=== PATIENT | male | born 1950 | race Caucasian/White ===

== ENCOUNTER 2023-11-22 14:53 | Emergency (ER) | payer MEDICARE, SELFPAY ==
[2023-11-22 14:54] VITALS: BP 182/98
[2023-11-22 15:16] VITALS: BMI 22.3
--- NOTE | 2023-11-22 15:21 | ED.GENMED ---
History of Present Illness
General
Chief Complaint: Ear Problem
Source: patient
Exam Limitations: none
Time Seen by Provider: 11/22/23 15:03
Travel History
Have you had any contact with someone who has COVID-19?: No
Do you have any symptoms of coronavirus? Fever > 100 degrees, chills, cough, shortness of breath, sore throat, loss of taste or smell, muscle aches, or headache?: No
History of Present Illness
History of Present Illness:
See MDM
Past History
Past History
ED Past Medical History: CVA, GERD and HTN
ED Past Surgical History: Cholecystectomy
Social History
Tobacco: Non-smoker
Alcohol: Occasional
Phy Exam
Physical Exam
Physical Exam:
See MDM
Course
Orders/Labs/Results
Orders:
Orders
11/22/23 15:13
CT Temporal-iac W/o Iv Contras Urgent
Comment:
Reason For Exam: Right side hearing loss
11/22/23 15:20
Complete Blood Count/With Diff Urgent
Comprehensive Metabolic Panel Urgent
Abnormal Lab Results
11/22/23
15:20
MCH 31.9 H pg
(27.0-31.0)
Sodium 133 L mmol/L
(135-145)
Creatinine 0.6 L mg/dL
(0.7-1.3)
Glucose 120 H mg/dl
(70-99)
11/22/23 15:20
11/22/23 15:20
Vital Signs
Initial and Last Documented VS:
Initial Vital Signs
Temp Pulse Resp BP Pulse Ox
98.2 F 96 18 182/98 99
11/22/23 14:54 11/22/23 14:54 11/22/23 14:54 11/22/23 14:54 11/22/23 14:54
Last Documented Vital Signs
Temp Pulse Resp BP Pulse Ox
98.2 F 79 20 147/77 95
11/22/23 14:54 11/22/23 17:35 11/22/23 17:35 11/22/23 17:35 11/22/23 17:35
MDM/Problems Addressed
Differential Diagnosis Includes:
HPI and MDM Narrative:
73-year-old male presenting with right-sided hearing loss. Patient was recently placed on cefprozil for 'fluid in his left ear'. After day 3 of the antibiotic, he lost hearing in his right ear. He finished the 10-day course of the antibiotic.
Patient complains of ringing in his right ear.
On exam, patient has evidence of fluid behind both eardrums. Air conduction is greater than Bone conduction in R ear.
I discussed with patient that the antibiotic could be ototoxic. Will obtain basic blood work and CT of the temporal region and ultimately have him follow-up with ENT
Physical exam
General: Well appearing and non-toxic
HEENT: protecting airway. Bilateral TMs clear. Both TMs have clear fluid behind. No evidence of otitis media. Air conduction greater than bone conduction in right ear
Neck: appears supple
CV: No evidence of cyanosis
Resp: No accessory muscle use
Abd: Non-distended
Extremities: No deformities
Neuro: alert
Psych: Normal affect
Skin: Intact
Problems Addressed including Acute and Chronic Conditions affecting care:
1. Unilateral hearing loss
Acuity: acute
Prognosis: stable
Details: Will obtain CT looking for any evidence of mass versus infection. Discussed likely ototoxic side effect from antibiotics. He is off antibiotics. Will have him follow-up with ENT
Updates
Labs without clinical significance. CT negative for acute pathology. Discussed follow-up with ENT
Differential Diagnosis (but not limited to): Ototoxic adverse side effect of antibiotic, sensorineural hearing loss
Testing considered:
Drug therapy (if applicable): OTC meds, please see d/c instruction regarding Rx drugs
Amount and/or Complexity of Data Reviewed
Clinical info obtained from: Patient
External data reviewed: N/A
Labs I independently reviewed (but not limited to): White blood cell count normal
Radiology: the CT scan was personally and independently reviewed. In addition, official CT report reviewed.
Pulse Ox: not hypoxic
EKG independently reviewed: N/A
Community Health Nursing Director: N/A
Critical Care: N/A
Risk of Complication:
Social Determinants of health: Good social support
Discussed with other providers: N/A
Escalation of Care includes Admit/Obs: After being observed in the Emergency Department, pt stable for discharge.
Occasional wrong word or 'sound a like' substitutions may have occurred due to the inherent limitations of voice recognition software. Read the chart carefully and recognize, using context, where substitutions have occurred.
*Critical Care Note
Total Time (30-74mins, 75-104mins- exclusive of procedures): Not Applicable
ED Attending Note
-
Portions of this chart may have been created with voice recognition software.� Occasional wrong word or��sound alike� substitutions may have occurred due to the inherent limitations of voice recognition software.
Discharge Plan
Departure
Patient Disposition: Home (Routine Discharge)
Date of Disposition: 11/22/23
Time of Disposition: 18:30
Patient with high blood pressure during this ER visit?: Yes
Discharge Problem:
Sensorineural hearing loss (SNHL) of right ear
Prescriptions:
No Action
metformin 500 MG tablet
500 mg PO BID
cyanocobalamin (vitamin B-12) 1,000 MCG tablet extended release
1,000 mcg PO DAILY
atorvastatin 20 MG tablet
20 mg PO QPM
felodipine 5 MG tablet extended release 24 hr
5 mg PO DAILY
trazodone 100 MG tablet
100 mg PO HS
Patient Comments:
take one tab every day after meals
bupropion HCl 75 MG tablet
3 tab PO HS
vitamin B complex 1 EACH tablet
1 ea PO DAILY
gabapentin 100 MG capsule
300 mg PO BID
fluticasone propionate 1 SPRAY spray,suspension
1 spray intranasal DAILY PRN (Reason: CONGESTION)
Patient Comments:
1 spray each nostril daily
atenolol 50 MG tablet
50 mg PO DAILY
omeprazole 20 MG tablet,delayed release (DR/EC)
20 mg PO DAILY
omega 6-kve-vzp-fish oil [Fish Oil] 1 EACH capsule
1 ea PO DAILY
aspirin 325 MG tablet
325 mg PO DAILY
aspirin 81 MG tablet,delayed release (DR/EC)
81 mg PO DAILY
loratadine-pseudoephedrine [Loratadine-D] 1 EACH tablet extended release 24 hr
1 ea PO DAILY
diclofenac sodium 25 MG tablet,delayed release (DR/EC)
50 mg PO DAILY
acetaminophen 325 MG tablet
650 mg PO Q4HPRN PRN (Reason: mild pain) Qty: 1 0RF
ibuprofen 200 MG tablet
400 - 600 mg PO Q6HPRN PRN (Reason: moderate pain) Qty: 1 0RF
oxycodone 5 MG tablet
5 mg PO Q4HPRN PRN (Reason: breakthrough/severe pain) Qty: 10 0RF
Referrals:
Bill Pisano MD [Family Provider] -
Marylu Chisholm MD [Active] -
Activity Restrictions/Additional Instructions:
As we discussed, your hearing loss could be related to the antibiotic you are taking. Please follow-up with the ENT physician. Please make an appointment to see your primary care doctor as well.
Interventions
Interventions:
*Risk Screen - Suicide Last Done: 11/22/23 14:54
*General Assessment Last Done: 11/22/23 14:54
*Neglect/Abuse Screening Last Done: 11/22/23 14:54
ED- Fall Risk Assessment Last Done: 11/22/23 18:37
*ED COVID-19 Vaccine History Last Done: 11/22/23 14:54
*Nursing Disposition Last Done: 11/22/23 18:37
Discharge Date and Time
Discharge Date/Time: 11/22/23 18:38
[2023-11-22 16:01] LABS: % Basophils 0.6 % (0-2); % Eosinophils 2.5 % (0-6); % Immature Granulocytes 0.5 % (0-0.5); % Lymphocytes 27.8 % (20.5-51.1); % Monocytes 7.2 % (1.7-9.3); % Neutrophils 61.4 % (42.2-75.2); Absolute Basophils 0.1 10^3/uL (0-0.2); Absolute Eosinophils 0.2 10^3/uL (0-0.7); Absolute Lymphocytes 2.4 10^3/uL (1.2-3.4); Absolute Monocytes 0.6 10^3/uL (0.1-0.6); Absolute Neutrophils 5.4 10^3/uL (1.4-6.5); Hematocrit 42.9 % (39.0-52.0); Hemoglobin 15.6 g/dL (13.0-18.0); Mean Corp Hgb Conc. 36.4 g/dL (33.0-37.0); Mean Corpuscular Hgb 31.9 pg (27.0-31.0); Mean Corpuscular Volume 87.7 fL (80.0-94.0); Mean Platelet Volume 10.2 fL (7.4-10.4); Nucleated Red Blood Cells % 0 % (-); Platelet Count 251 10^3/uL (130-400); Red Blood Cell Count 4.89 10^6/uL (4.70-6.10); Red Cell Dist. Width 12.7 % (11.5-14.5); White Blood Cell Count 8.7 10^3/uL (4.8-10.8)
[2023-11-22 16:03] LABS: ALT (SGPT) 22 U/L (0-50); AST (SGOT) 39 U/L (17-59); Albumin 4.6 g/dl (3.5-5.0); Alkaline Phosphatase 76 U/L (38-126); Blood Urea Nitrogen 9 mg/dl (9-20); Calcium 9.6 mg/dl (8.4-10.2); Carbon Dioxide 24 mmol/L (22-30); Chloride 101 mmol/L (98-107); Estimated Creatinine Clearance 99 ml/min; Glucose 120 mg/dl (70-99); Potassium 3.8 mmol/L (3.5-5.1); Sodium 133 mmol/L (135-145); Total Protein 7.3 g/dl (6.3-8.2); eGFR > 60.00
[2023-11-22 17:35] VITALS: BP 147/77
== END 2023-11-22 18:38 | disposition home or self-care (01) ==
LOC: EMR 14:53
PROVIDERS: EMERGENCY PHYSICIAN Student in an Organized Health Care Education/Training Program; FAMILY PHYSICIAN Internal Medicine
DX: H90.41 Sensorineural hearing loss, unilateral, right ear, with unrestricted hearing on the contralateral side (principal); I10 Essential (primary) hypertension
CPT/HCPCS: 99284; 70480; 80053; 85025

== ENCOUNTER 2024-10-26 15:27 | Inpatient (IN) | payer MEDICARE, SELFPAY ==
[2024-10-26 11:34] VITALS: BP 183/89
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
[2024-10-26 11:39] VITALS: BMI 21.4
[2024-10-26 11:42] VITALS: BP 183/89
[2024-10-26 11:52] LABS: Glucose - Point of Care 96 mg/dl (70-99)
[2024-10-26 11:54] LABS: % Basophils 0.5 % (0-2); % Eosinophils 2.4 % (0-6); % Immature Granulocytes 0.2 % (0-0.5); % Lymphocytes 30.5 % (20.5-51.1); % Monocytes 8.2 % (1.7-9.3); % Neutrophils 58.2 % (42.2-75.2); Absolute Eosinophils 0.1 10^3/uL (0-0.7); Absolute Lymphocytes 1.8 10^3/uL (1.2-3.4); Absolute Monocytes 0.5 10^3/uL (0.1-0.6); Absolute Neutrophils 3.3 10^3/uL (1.4-6.5); Hematocrit 44.7 % (39.0-52.0); Hemoglobin 15.9 g/dL (13.0-18.0); Mean Corp Hgb Conc. 35.6 g/dL (33.0-37.0); Mean Corpuscular Hgb 32.2 pg (27.0-31.0); Mean Corpuscular Volume 90.5 fL (80.0-94.0); Mean Platelet Volume 10.2 fL (7.4-10.4); Nucleated Red Blood Cells % 0 % (-); Platelet Count 219 10^3/uL (130-400); Red Blood Cell Count 4.94 10^6/uL (4.70-6.10); Red Cell Dist. Width 12.4 % (11.5-14.5); White Blood Cell Count 5.7 10^3/uL (4.8-10.8)
[2024-10-26 11:55] LABS: Urine Albumin Negative (Neg - Trace); Urine Bilirubin Negative (Negative); Urine Character Clear (Clear); Urine Color Yellow; Urine Glucose Negative (Negative); Urine Ketone Negative (Negative); Urine Leukocyte 2+ (Negative); Urine Nitrite Negative (Negative); Urine Occult Blood 1+ (Negative); Urine Urobilinogen Negative (Neg - 1+)
[2024-10-26 12:07] LABS: ALT (SGPT) 19 U/L (0-50); AST (SGOT) 32 U/L (17-59); Albumin 4.4 g/dl (3.5-5.0); Alkaline Phosphatase 61 U/L (38-126); Blood Urea Nitrogen 7 mg/dl (9-20); Calcium 9.3 mg/dl (8.4-10.2); Carbon Dioxide 31 mmol/L (22-30); Chloride 100 mmol/L (98-107); Estimated Creatinine Clearance 89 ml/min; Glucose 107 mg/dl (70-99); Potassium 3.7 mmol/L (3.5-5.1); Sodium 137 mmol/L (135-145); Total Bilirubin 1.3 mg/dl (0.2-1.3); Total Protein 6.9 g/dl (6.3-8.2); eGFR > 60.00
[2024-10-26 12:08] LABS: Alcohol None Detected
[2024-10-26 12:21] LABS: Ammonia < 9 umol/L (9-30)
[2024-10-26 12:33] LABS: Urine Bacteria Few (Negative); Urine Red Blood Cell 0-2 /HPF (0-2); Urine Squamous Cell None seen /LPF (Few)
--- NOTE | 2024-10-26 14:09 | PHANOTE ---
Addendum entered by Hemant Deleon 10/26/24 15:35:
Checked with family, they are very unsure of current medications. Instructed to bring in bottles that are at home, will check back later if possible.
Original Note:
SOLO tech(10/26/24)-Family will go home and compile medication list from patient's medications, estimated will come around 15:00.
[2024-10-26 14:35] LABS: Folate > 20.0 ng/ml (2.76-20); Vitamin B12 641 pg/ml (239-931)
--- NOTE | 2024-10-26 14:53 | HPS.HSE ---
Family Physician
-
Family Physician: * NONE
Chief Complaint
-
confused and wonderer patient
History of Present Illness
I could not get any information from the patient as he is confused
Information gathered by chart review and speaking with the ER staff.
Medical History
Past Medical History
Past Medical History: Reports CVA, HTN, Hypercholesterolemia and NIDDM
Past Surgical History: Reports Cholecystectomy
Social History
Alcohol: Daily (quit 1 week ago )
Living: Other (hotel )
Family History
Family History: Not pertinent
Allergies / Home Medications
Allergies reflects when Allergies were last updated in [facility].
Home Medications with original date entered in [facility]
Allergy/Medication List:
Allergies
Allergy/AdvReac Type Severity Reaction Status Date / Time
No Known Allergies Allergy Verified 06/30/20 07:53
Home Medications
atenolol 50 mg tablet 50 mg PO DAILY 01/08/13
atorvastatin 20 mg tablet 20 mg PO QPM 01/08/13
bupropion HCl 75 mg tablet 3 tab PO HS 01/08/13
cyanocobalamin (vitamin B-12) 1,000 mcg tablet,extended release 1,000 mcg PO DAILY 01/08/13
felodipine 5 mg tablet,extended release 24 hr 5 mg PO DAILY 01/08/13
fluticasone propionate 50 mcg/actuation nasal spray,suspension 1 spray intranasal DAILY PRN CONGESTION 01/08/13
gabapentin 100 mg capsule 300 mg PO BID 01/08/13
metformin 500 mg tablet 500 mg PO BID 01/08/13
omeprazole 20 mg tablet,delayed release 20 mg PO DAILY 01/08/13
trazodone 100 mg tablet 100 mg PO HS 01/08/13
vitamin B complex 1 ea PO DAILY 01/08/13
aspirin 325 mg tablet 325 mg PO DAILY 06/29/20
aspirin 81 mg tablet,delayed release 81 mg PO DAILY 06/29/20
diclofenac sodium 25 mg tablet,delayed release 50 mg PO DAILY 06/29/20
loratadine-pseudoephedrine ER 10 mg-240 mg tablet,extended [id number] (Loratadine-D) 1 ea PO DAILY 06/29/20
omega 0-qba-mky-fish oil 300 mg-1,000 mg capsule (Fish Oil) 1 ea PO DAILY 06/29/20
acetaminophen 325 mg tablet 650 mg (2 x 325 mg) PO Q4HPRN PRN mild pain #1 tab 06/30/20
ibuprofen 200 mg tablet 400 - 600 mg (2 - 3 x 200 mg) PO Q6HPRN PRN moderate pain #1 tab 06/30/20
oxycodone 5 mg tablet 5 mg PO Q4HPRN PRN breakthrough/severe pain #10 tabs 06/30/20
Review of Systems
-
Unable to obtain full review of systems at this time due to: Acuity (confused )
Physical Exam
Vital Signs
Vital Signs
Temp Pulse Resp BP Pulse Ox
97.5 F 69 14 183/89 94
10/26/24 11:42 10/26/24 14:30 10/26/24 14:30 10/26/24 11:42 10/26/24 14:30
Physical Exam
General: No Apparent Distress, Comfortable and Conversant
HEENT: NormoCephalic, Anicteric and Moist mucous membranes
Respiratory: Clear
Cardiac: S1/S2 and Regular Rhythm
GI: Soft, Non Tender, Non Distended and Normal Bowel Sounds
Neuro: Awake and Alert
Psych: Calm and Confused
Laboratory Results
-
10/26/24 11:41
10/26/24 11:41
Laboratory Results
Total Bilirubin 1.3 mg/dl (0.2-1.3) 10/26/24 11:41
AST 32 U/L (17-59) 10/26/24 11:41
ALT 19 U/L (0-50) 10/26/24 11:41
Alkaline Phosphatase 61 U/L (38-126) 10/26/24 11:41
Data Reviewed
-
CT Scan: Report Reviewed by me
Lab Data: Labs Reviewed by me
Impression/Plan
-
Reviewed VS: afebrile, not tachycardic, Hypertensive 180s/90s POx 100 on RA
Laboratory Tests
10/26/24
11:41
WBC 5.7
Hgb 15.9
Plt Count 219
Carbon Dioxide 31 H
BUN 7 L
Creatinine 0.6 L
EKG
NORMAL SINUS RHYTHM
NORMAL ECG
WHEN COMPARED WITH ECG OF 30-JUN-2020 14:02,
IA INTERVAL HAS DECREASED
HCT
No acute intracranial abnormality.
Minor chronic ischemic change.
ASSESSMENT & PLAN
Pending Rx reconciliation
AMS and Confusional state : acute vs subacute vs chronic
DDX: likely acute ETOH WDS Plus or minus elements of cognitive dysorder like ETOH related MCI vs DEmentia
- associated hypertensive BP but no other evidecnne of autonomic hyperarousal features
- Nevertheless will start PHB protocol
- Observe VSS
- check B12, Folate and TSH
- Psych consult
Uncontrol HTN
Essentila HTN
- Pending Rx reconciliation
- add IV Hydralazine PRN for SBP > 165 , DBP > 110
DMT2
- Pending Rx reconciliation but noted Metformin on the list
- add ISS low
Mood disorder ? ETOH related
- Pending Rx reconciliation but noted Bupropion and Trazodone on the list
Hold of Ibuprofen if confirmed
DVT Px: SCD
Full code
IP TLM
[2024-10-26 15:17] VITALS: BP 123/70
--- NOTE | 2024-10-26 16:49 | PTCARENOTE ---
Received patient from ED via stretcher. Pt AAOX3. NSR on panel monitor. MSAS 0 at this time. Bed alarm on. Call roberts within reach. Plan of care ongoing.
[2024-10-26 17:12] VITALS: BP 152/77; BMI 22.5
[2024-10-26] MEDS: PHENOBARBITAL 104 MG IV (17:12)
--- NOTE | 2024-10-26 17:13 | PTCARENOTE ---
Pt stated that hearing aids were left at home, however a family member will be bringing them tomorrow for him.
[2024-10-26] MEDS: THIAMINE INJECTION 200 MG IV (17:14)
[2024-10-26 17:26] LABS: Glucose - Point of Care 63 mg/dl (70-99)
[2024-10-26] MEDS: NOVOLOG FLEXPEN-LOW RESISTANCE SC (17:37)
[2024-10-26 17:58] LABS: Glucose - Point of Care 144 mg/dl (70-99)
[2024-10-26 18:19] LABS: Urine Albumin 1+ (Neg - Trace); Urine Bilirubin Negative (Negative); Urine Character Slightly Cloudy (Clear); Urine Color Yellow; Urine Glucose Negative (Negative); Urine Ketone Negative (Negative); Urine Leukocyte Negative (Negative); Urine Nitrite Negative (Negative); Urine Occult Blood 1+ (Negative); Urine Urobilinogen Negative (Neg - 1+); Urine pH 6.5 (5.0-9.0)
[2024-10-26 18:26] LABS: Urine Squamous Cell 0-2 /LPF (Few); Urine White Cell 0-2 /HPF (0-5)
[2024-10-26 18:31] LABS: Amphetamines Negative (Negative); Barbiturates Negative (Negative); Benzodiazepines Negative (Negative); Buprenorphine Negative (Negative); Cocaine Negative (Negative); Marijuana Positive (Negative); Methadone Negative (Negative); Methamphetamines Negative (Negative); Opiates Negative (Negative); Phencyclidine Negative (Negative); Tricyclic Antidepressants Negative (Negative)
[2024-10-26 18:57] LABS: GGTP 32 U/L (15-73); Magnesium 1.6 mg/dl (1.6-2.3); Phosphorus 3.2 mg/dl (2.5-4.5)
[2024-10-26 19:55] VITALS: BP 123/67
[2024-10-26 21:51] LABS: Glucose - Point of Care 129 mg/dl (70-99)
[2024-10-26] MEDS: PHENOBARBITAL 97.5 MG IV (22:06)
[2024-10-26 23:00] VITALS: BP 109/60
[2024-10-27] MEDS: THIAMINE INJECTION 200 MG IV ×4 (00:29→23:43)
[2024-10-27 03:55] VITALS: BP 119/61
[2024-10-27 08:09] VITALS: BP 118/70
[2024-10-27] MEDS: PHENOBARBITAL 97.5 MG IV ×3 (08:09→21:35)
[2024-10-27] MEDS: FOLVITE 1 MG PO (08:10)
[2024-10-27 09:34] LABS: Glycohemoglobin (HgbA1c) 5.8 % (4.0-5.6)
[2024-10-27 10:08] LABS: Glucose - Point of Care 102 mg/dl (70-99)
[2024-10-27] MEDS: NOVOLOG FLEXPEN-LOW RESISTANCE SC ×3 (10:21→17:40)
[2024-10-27 12:01] VITALS: BP 152/78
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
[2024-10-27 12:40] LABS: Glucose - Point of Care 179 mg/dl (70-99)
--- NOTE | 2024-10-27 15:23 | W.PN.HOSP.TC ---
Today's Communication/Plan
-
Continue alcohol withdrawal protocol
Phenobarbital
Thiamine
Assessment / Plan
Assessment / Plan
Impression:
Acute mental status change.
Alcohol use disorder.
Other conditions:
Essential hypertension.
Diabetes type 2.
Hearing deficit.
Plan:
Acute mental status change suspected acute delirium secondary to alcohol withdrawal, Wernicke's encephalopathy.
Neurologic exam with no focal findings.
CT head with no acute abnormalities.
No clinical evidence of hepatic encephalopathy
Seems to be improving on phenobarbital
Continue alcohol withdrawal protocol.
Continue IV thiamine
Essential hypertension
Resume atenolol
Dyslipidemia on Lipitor.
Type 2 diabetes
Hemoglobin A1c 5.8.
Continue basal bolus protocol and carbohydrate controlled diet
Anticipated Discharge: 24 - 48 hours
Subjective/Interval History
-
Date of Service: October 27, 2024
Objective Data
-
Vital Signs:
Vital Signs
Temp Pulse Resp BP Pulse Ox
98.9 F 80 18 152/78 99
10/27/24 12:01 10/27/24 12:01 10/27/24 12:01 10/27/24 12:01 10/27/24 12:01
I&O
10/26/24 10/27/24 10/28/24
06:59 06:59 06:59
Intake Total 104 / 104
Output Total 200 / 200
Balance 104 / 104 -200 / -200
Physical Exam
-
General: Well Developed and No Apparent Distress
HEENT: Normocephalic, Atraumatic and Moist Mucous Membranes
Respiratory: Clear to Auscultation
Cardiac: Regular Rhythm and S1/S2; Negative Murmur, Rub or Gallop
GI: Soft, Nontender, Nondistended and Normal Bowel Sounds; Negative Organomegaly
Rectal: Deferred by Provider
Musculoskeletal: No Clubbing, No Cyanosis and No Edema
Skin: Negative Rash
Neuro: Nonfocal/Grossly Intact
[2024-10-27] MEDS: NEURONTIN 300 MG PO ×2 (15:50→21:35)
[2024-10-27] MEDS: PROTONIX 40 MG PO (15:50)
[2024-10-27] MEDS: LIPITOR 40 MG PO (15:53)
[2024-10-27 16:03] VITALS: BP 143/72
[2024-10-27] MEDS: TENORMIN 50 MG PO (16:10)
[2024-10-27 17:09] LABS: Glucose - Point of Care 85 mg/dl (70-99)
[2024-10-27] MEDS: FLOMAX 0.8 MG PO (17:41)
[2024-10-27 19:44] VITALS: BP 119/62
[2024-10-27 22:04] LABS: Glucose - Point of Care 131 mg/dl (70-99)
[2024-10-27 23:59] VITALS: BP 101/60
[2024-10-28 03:46] VITALS: BP 115/65
[2024-10-28 07:45] VITALS: BP 131/71
[2024-10-28] MEDS: FOLVITE 1 MG PO (08:43)
[2024-10-28] MEDS: NEURONTIN 300 MG PO ×3 (08:43→21:02)
[2024-10-28] MEDS: PROTONIX 40 MG PO (08:43)
[2024-10-28] MEDS: LIPITOR 40 MG PO (08:43)
[2024-10-28] MEDS: PLENDIL EXTENDED RELEASE 5 MG PO (08:43)
[2024-10-28] MEDS: TENORMIN 50 MG PO (08:43)
[2024-10-28] MEDS: FLUSH (NSS) 2 FLUSH IV ×2 (08:44→17:01)
[2024-10-28] MEDS: PHENOBARBITAL 97.5 MG IV ×2 (08:46→17:00)
[2024-10-28] MEDS: THIAMINE INJECTION 200 MG IV ×3 (08:47→23:00)
[2024-10-28 08:49] LABS: Glucose - Point of Care 94 mg/dl (70-99)
[2024-10-28] MEDS: NOVOLOG FLEXPEN-LOW RESISTANCE SC ×2 (08:49→17:51)
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
[2024-10-28 11:40] VITALS: BP 118/62
[2024-10-28 12:03] LABS: Glucose - Point of Care 158 mg/dl (70-99)
[2024-10-28] MEDS: NOVOLOG FLEXPEN-LOW RESISTANCE 1 UNITS SC (13:31)
--- NOTE | 2024-10-28 14:42 | CM ---
Addendum entered by Jerad Woodard 10/28/24 16:01:
Spoke w/ Nguyễn, shared he and his [id number] toured [facility] today and is interested in moving forward w/ admission. Nguyễn stated he was informed by the director that there needs to be a firm dementia dx before admission as it is state
mandated. Nguyễn also inquired if pt's insurance would cover the placement at [facility]. CM informed facilities, no matter the level of care is usually private pay, Nguyễn stated the director did review w/ him the financial cost but was hoping
insurance can assist. Nguyễn shared his [id number] is [facility] w/ [facility] as pt is a disabled [facility].
CM spoke w/ hospitalist regarding dementia dx. Per Dr. Albrecht pt's mentation is resolving and has only been getting treated for alcohol withdrawal. Pt is not indicating any signs of dementia at this time.
CM updated Nguyễn sharing what Dr. Albrecht said and has requested a phone call, TT hospitalist making him aware.
Original Note:
Spoke w/ pt's son, Nguyễn, regarding d/c plan. CM informed Nguyễn that the director from [facility] updated CM after he met w/ pt bedside and spoke w/ him and deems pt appropriate. Nguyễn shared he is considering [facility] and will clarify w/ the
director if pt actually needs a dementia dx to admit, though this was not told to CM. Nguyễn shared he is still exploring other facilities and trying to gather all needed information in terms of cost, levels of care, etc. Nguyễn understands that
pt is stable for d/c. Nguyễn shared he did speak w/ Hunter/MA[employer] technician inventory specialist regarding D&A support for pt and will follow up w/ him as well. Not sure if pt will admit to IP D&A, OP may be explored.
CM will cont to follow for d/c planning
Plan: Memory Care Placement
[2024-10-28 14:46] LABS: ALT (SGPT) 15 U/L (0-50); AST (SGOT) 20 U/L (17-59); Albumin 3.6 g/dl (3.5-5.0); Alkaline Phosphatase 54 U/L (38-126); Blood Urea Nitrogen 13 mg/dl (9-20); Carbon Dioxide 28 mmol/L (22-30); Chloride 101 mmol/L (98-107); Estimated Creatinine Clearance 94 ml/min; Glucose 101 mg/dl (70-99); Potassium 3.8 mmol/L (3.5-5.1); Sodium 134 mmol/L (135-145); Total Protein 5.8 g/dl (6.3-8.2); eGFR > 60.00
[2024-10-28 15:40] VITALS: BP 125/61
--- NOTE | 2024-10-28 15:57 | W.PN.HOSP.TC ---
Today's Communication/Plan
-
Mental status overall improved while on phenobarbital taper.
Will continue
Physical therapy assessment
Ongoing disposition efforts Home versus rehab.
Assessment / Plan
Assessment / Plan
Impression:
Acute mental status change.
Alcohol use disorder.
Other conditions:
Essential hypertension.
Diabetes type 2.
Hearing deficit.
Plan:
Acute mental status change suspected acute delirium secondary to alcohol withdrawal, Wernicke's encephalopathy.
Neurologic exam with no focal findings.
CT head with no acute abnormalities.
No clinical evidence of hepatic encephalopathy
Seems to be improving on phenobarbital
Continue alcohol withdrawal protocol.
Continue IV thiamine
Essential hypertension
Resume atenolol
Dyslipidemia on Lipitor.
Type 2 diabetes
Hemoglobin A1c 5.8.
Continue basal bolus protocol and carbohydrate controlled diet
Anticipated Discharge: 24 - 48 hours
Subjective/Interval History
-
Date of Service: October 28, 2024
Objective Data
-
Labs:
Laboratory Results
10/28/24
14:12
Sodium 134 L
Potassium 3.8
Chloride 101
Carbon Dioxide 28
BUN 13
Creatinine 0.6 L
Glucose 101 H
Calcium 9.0
Total Bilirubin 1.0
AST 20
ALT 15
Alkaline Phosphatase 54
Vital Signs:
Vital Signs
Temp Pulse Resp BP Pulse Ox
97.7 F 59 16 118/62 96
10/28/24 11:40 10/28/24 11:40 10/28/24 11:40 10/28/24 11:40 10/28/24 11:40
I&O
10/27/24 10/28/24 10/29/24
06:59 06:59 06:59
Intake Total 104 / 104 240 / 240
Output Total 200 / 200
Balance / 40 / 40
Physical Exam
-
General: Well Developed and No Apparent Distress
HEENT: Normocephalic, Atraumatic and Moist Mucous Membranes
Respiratory: Clear to Auscultation
Cardiac: Regular Rhythm and S1/S2; Negative Murmur, Rub or Gallop
GI: Soft, Nontender, Nondistended and Normal Bowel Sounds; Negative Organomegaly
Rectal: Deferred by Provider
Musculoskeletal: No Clubbing, No Cyanosis and No Edema
Skin: Negative Rash
Neuro: Awake, Alert, Oriented, AO x 3 and Nonfocal/Grossly Intact
[2024-10-28] MEDS: FLOMAX 0.8 MG PO (17:03)
[2024-10-28 17:35] LABS: Glucose - Point of Care 131 mg/dl (70-99)
[2024-10-28 19:45] VITALS: BP 132/63
[2024-10-28] MEDS: LUMINAL 64.8 MG PO (21:02)
[2024-10-28 21:44] LABS: Glucose - Point of Care 124 mg/dl (70-99)
[2024-10-28 23:10] VITALS: BP 131/65
--- NOTE | 2024-10-29 02:47 | DOWNTIME ---
There was a [employer] Downtime on 10/29/2024 from 0100 to 10/29/2023 at 0235 . Downtime documentation of patient's care, including medication administrations, has been reconciled in the electronic record per guidelines. Refer to the
patient's paper chart under the miscellaneous tab to see printed paper medication records and downtime forms.
[2024-10-29 03:56] VITALS: BP 135/68
[2024-10-29 07:40] VITALS: BP 137/70
[2024-10-29 08:25] LABS: Glucose - Point of Care 84 mg/dl (70-99)
[2024-10-29] MEDS: NOVOLOG FLEXPEN-LOW RESISTANCE SC ×3 (08:48→17:31)
[2024-10-29] MEDS: LUMINAL 64.8 MG PO ×3 (08:53→21:21)
[2024-10-29] MEDS: PLENDIL EXTENDED RELEASE 5 MG PO (08:53)
[2024-10-29] MEDS: PROTONIX 40 MG PO (08:53)
[2024-10-29] MEDS: NEURONTIN 300 MG PO ×3 (08:53→21:21)
[2024-10-29] MEDS: LIPITOR 40 MG PO (08:54)
[2024-10-29] MEDS: FOLVITE 1 MG PO (08:54)
[2024-10-29] MEDS: THIAMINE INJECTION 200 MG IV (08:54)
[2024-10-29] MEDS: TENORMIN 50 MG PO (08:54)
[2024-10-29 11:15] VITALS: BP 127/64
[2024-10-29 11:24] LABS: TSH 0.92 uIU/ml (0.47-4.68)
--- NOTE | 2024-10-29 11:29 | CM ---
CM spoke w/ pt's son, Nguyễn, via phone. Nguyễn informed CM that he did receive a call from Dr. Albrecht yesterday as requested regarding pt's mental status. Neurology consult was ordered. Nguyễn shared neurology seen pt and spoke w/ him this
morning and will complete scans. Nguyễn started neurologist will follow up w/ him tomorrow to review results and move forward from there.
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
[2024-10-29 12:11] LABS: Glucose - Point of Care 75 mg/dl (70-99)
--- NOTE | 2024-10-29 13:59 | EEG.RPT ---
Electroencephalogram Report
Recording
Date of EE10/29/24
Type of EEG: Routine
Length of EEG recordin minutes
Done with Video Recording: Yes
Patient Status: Inpatient
Recording Conditions: Awake, Drowsy and Asleep
Hyperventilation Performed: No
Photic Stimulation Performed: Yes
Report
LESS THAN 1 HOUR EEG REPORT
LESS THAN 1 HOUR EEG INTERPRETATION:
Unremarkable EEG for age
CLINICAL CORRELATION:
A normal EEG does not rule out a diagnosis of epilepsy. If clinical suspicion for seizure persists, a prolonged recording may be warranted.
Clinical correlation is advised.
METHODS:
A 21 channel digitized electroencephalogram (EEG) was performed using the 10/20 international system of electrode placement and one-lead of ECG recorded. Video was recorded.
ELECTROENCEPHALOGRAPHER IMPRESSION(S):
Quality of study
Good
Background
There was an unremarkable anterior-posterior voltage gradient of alpha frequency.
With eye opening the background activity changed to a low voltage mixture of frequencies.
There were no significant asymmetries of background activity noted.
Sleep
Drowsiness present
Stage I present
Stage 2 present
Photic Stimulation
Produced driving symmetrically in most flash frequencies
ECG
Normal sinus rhythm
[2024-10-29 15:15] VITALS: BP 138/71
--- NOTE | 2024-10-29 15:29 | W.PN.HOSP.TC ---
Today's Communication/Plan
-
Continue phenobarbital taper
Neurology evaluation
Assessment / Plan
Assessment / Plan
Impression:
Acute mental status change.
Delirium tremens
Alcohol use disorder.
Suspected metabolic encephalopathy with concern for progressive neurodegenerative disorder
Other conditions:
Essential hypertension.
Diabetes type 2.
Hearing deficit.
Plan:
Acute mental status change suspected acute delirium secondary to alcohol withdrawal, Wernicke's encephalopathy.
Neurologic exam with no focal findings.
CT head with no acute abnormalities.
No clinical evidence of hepatic encephalopathy
Seems to be improving on phenobarbital
Continue alcohol withdrawal protocol. To be improving on phenobarbital taper
Continue IV thiamine.
Neurology consultation for additional workup with concern for protracted encephalopathy versus progressive neurodegenerative disorder
EEG is unremarkable
MRI pending
Essential hypertension
Resume atenolol
Dyslipidemia on Lipitor.
Type 2 diabetes
Hemoglobin A1c 5.8.
Continue basal bolus protocol and carbohydrate controlled diet
Anticipated Discharge: 24 - 48 hours
Subjective/Interval History
-
Date of Service: October 29, 2024
Objective Data
-
Vital Signs:
Vital Signs
Temp Pulse Resp BP Pulse Ox
97.9 F 57 16 127/64 99
10/29/24 11:15 10/29/24 11:15 10/29/24 11:15 10/29/24 11:15 10/29/24 11:15
I&O
10/28/24 10/29/24 10/30/24
06:59 06:59 06:59
Intake Total 240 / 240 120 / 120
Output Total 200 / 200 200 / 200
Balance 40 / 40 -80 / -80
Physical Exam
-
General: Well Developed and No Apparent Distress
HEENT: Normocephalic, Atraumatic and Moist Mucous Membranes
Respiratory: Clear to Auscultation
Cardiac: Regular Rhythm and S1/S2; Negative Murmur, Rub or Gallop
GI: Soft, Nontender, Nondistended and Normal Bowel Sounds; Negative Organomegaly
Rectal: Deferred by Provider
Musculoskeletal: No Clubbing, No Cyanosis and No Edema
Skin: Negative Rash
Neuro: Awake, Alert, Oriented, AO x 3 and Nonfocal/Grossly Intact
[2024-10-29] MEDS: FLOMAX 0.8 MG PO (17:28)
[2024-10-29 17:29] LABS: Glucose - Point of Care 91 mg/dl (70-99)
[2024-10-29 19:21] VITALS: BP 122/65
[2024-10-29 21:12] LABS: Glucose - Point of Care 168 mg/dl (70-99)
[2024-10-29] MEDS: VITAMIN B1 100 MG PO (21:21)
[2024-10-29 23:09] VITALS: BP 136/67
[2024-10-30] VITALS (8 sets, daily range): BP systolic 114–154; BP diastolic 58–83; PULSE 62–65; O2SAT 98
[2024-10-30 07:42] LABS: Glucose - Point of Care 113 mg/dl (70-99)
[2024-10-30] MEDS: NOVOLOG FLEXPEN-LOW RESISTANCE SC ×2 (08:50→16:54)
[2024-10-30] MEDS: NEURONTIN 300 MG PO ×3 (09:10→21:16)
[2024-10-30] MEDS: PROTONIX 40 MG PO (09:10)
[2024-10-30] MEDS: LUMINAL 64.8 MG PO ×2 (09:11→15:08)
[2024-10-30] MEDS: FOLVITE 1 MG PO (09:11)
[2024-10-30] MEDS: TENORMIN 50 MG PO (09:11)
[2024-10-30] MEDS: LIPITOR 40 MG PO (09:11)
[2024-10-30] MEDS: PLENDIL EXTENDED RELEASE 5 MG PO (09:11)
[2024-10-30] MEDS: VITAMIN B1 100 MG PO ×2 (09:11→21:16)
--- NOTE | 2024-10-30 09:27 | CM ---
Addendum entered by Jerad Woodard 10/30/24 14:12:
Met w/ Nguyễn, bedside, shared he spoke w/ neurology and there are no significant findings for pt. Nguyễn stated at least he knows for sure pt is w/o dementia. Nguyễn stated his brother is working on completing paperwork and they have to provide
initial payment and purchase furniture for pt.
CM faxed requested clinicals and completed DME to [facility]. Per [facility], the health home day care provider will be performing the assessment on pt this afternoon or tomorrow.
Therapy not recommending rehab at this time
Original Note:
CM spoke w/ pt's son, Nguyễn via phone. Nguyễn shared that he and his [id number] toured another facility, [facility], and is interested in pt discharging there. Nguyễn stated this facility has a memory care unit, but would
like for pt to admit to their assisted living unit and if pt regresses w/ memory, he will then transition to their memory care if needed. Nguyễn shared his brother will complete the admission paperwork but would like for CM to speak w/ the director
and assist w/ any needed paperwork or information from the hospital. Nguyễn provided the director's contact information. Nguyễn shared he is waiting for the neurologist for updates.
MADDISON called director of [facility], [facility] [phone]. [facility]ron shared w/ CM the documents needed for pt to admit, including DME (document of medical evaluation) that he will email to CM, med scripts that would be documented in the DME, and a nurse will
come and assess pt prior to d/c. [facility] stated if PT/OT do not recommend any rehab needs, PT/OT script will not be needed. MADDISON TT hospitalist for PT/OT orders.
Plan: [facility]
[2024-10-30 11:44] LABS: Glucose - Point of Care 177 mg/dl (70-99)
[2024-10-30] MEDS: NOVOLOG FLEXPEN-LOW RESISTANCE 1 UNITS SC (11:52)
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
--- NOTE | 2024-10-30 15:27 | W.PN.HOSP.TC ---
Today's Communication/Plan
-
Doing well on phenobarbital
Continue taper
Continue thiamine
Placement to correction facility
Assessment / Plan
Assessment / Plan
Impression:
Acute mental status change.
Delirium tremens
Alcohol use disorder.
Suspected metabolic encephalopathy with concern for progressive neurodegenerative disorder
Other conditions:
Essential hypertension.
Diabetes type 2.
Hearing deficit.
Plan:
Acute mental status change suspected acute delirium secondary to alcohol withdrawal, Wernicke's encephalopathy.
Neurologic exam with no focal findings.
CT head with no acute abnormalities.
No clinical evidence of hepatic encephalopathy
Seems to be improving on phenobarbital
Continue alcohol withdrawal protocol. To be improving on phenobarbital taper
Continue IV thiamine.
Neurology consultation for additional workup with concern for protracted encephalopathy versus progressive neurodegenerative disorder
EEG is unremarkable
MRI with chronic white matter changes suggestive of chronic microvascular ischemic disease. Clinically with no evidence of vasculitis, infection, debilitating process.
Discussed with neurology.
Essential hypertension
Resume atenolol
Dyslipidemia on Lipitor.
Type 2 diabetes
Hemoglobin A1c 5.8.
Continue basal bolus protocol and carbohydrate controlled diet
Anticipated Discharge: Within 24 hours
Subjective/Interval History
-
Date of Service: October 30, 2024
Objective Data
-
Vital Signs:
Vital Signs
Temp Pulse Resp BP Pulse Ox
98.1 F 74 18 117/64 97
10/30/24 15:13 10/30/24 15:13 10/30/24 15:13 10/30/24 15:13 10/30/24 15:13
I&O
10/29/24 10/30/24 10/31/24
06:59 06:59 06:59
Intake Total 120 / 120 180 / 180
Output Total 200 / 200
Balance -80 / -80 180 / 180
Physical Exam
-
General: Well Developed and No Apparent Distress
HEENT: Normocephalic, Atraumatic and Moist Mucous Membranes
Respiratory: Clear to Auscultation
Cardiac: Regular Rhythm and S1/S2; Negative Murmur, Rub or Gallop
GI: Soft, Nontender, Nondistended and Normal Bowel Sounds; Negative Organomegaly
Rectal: Deferred by Provider
Musculoskeletal: No Clubbing, No Cyanosis and No Edema
Skin: Negative Rash
Neuro: Awake, Alert, Oriented, AO x 3 and Nonfocal/Grossly Intact
[2024-10-30 16:49] LABS: Glucose - Point of Care 121 mg/dl (70-99)
[2024-10-30] MEDS: FLOMAX 0.8 MG PO (17:20)
[2024-10-30] MEDS: LUMINAL 32.4 MG PO (21:16)
[2024-10-30 21:19] LABS: Glucose - Point of Care 121 mg/dl (70-99)
[2024-10-31 03:14] VITALS: BP 132/65
[2024-10-31 07:45] VITALS: BP 135/67
[2024-10-31 08:02] LABS: Glucose - Point of Care 102 mg/dl (70-99)
[2024-10-31] MEDS: NOVOLOG FLEXPEN-LOW RESISTANCE SC ×3 (08:59→17:04)
[2024-10-31] MEDS: VITAMIN B1 100 MG PO ×2 (09:02→21:26)
[2024-10-31] MEDS: NEURONTIN 300 MG PO ×3 (09:02→21:26)
[2024-10-31] MEDS: PROTONIX 40 MG PO (09:02)
[2024-10-31] MEDS: LUMINAL 32.4 MG PO ×3 (09:02→21:26)
[2024-10-31] MEDS: PLENDIL EXTENDED RELEASE 5 MG PO (09:02)
[2024-10-31] MEDS: TENORMIN 50 MG PO (09:03)
[2024-10-31] MEDS: FOLVITE 1 MG PO (09:03)
[2024-10-31] MEDS: LIPITOR 40 MG PO (09:03)
[2024-10-31 11:05] VITALS: BP 125/60
--- NOTE | 2024-10-31 11:40 | CM ---
CM spoke w/ pt's son, Nguyễn via phone. Nguyễn updated CM sharing that his brother will be completing the admission paperwork and submitting the interest fee check today to the assisted living facility. Nguyễn shared that the health director will
be visiting pt for an assessment today between 11:30 and noon. Nguyễn informed CM that the facility does not admit new residents over the weekend and pt can admit Sunday. CM reviewed PT note w/ determination of SNF vs [facility]. CM did share that pt
walked 80 ft w/o a device and if he is interested in any rehab for pt. Nguyễn stated pt is usually independent and not getting out of bed has played a factor in his weakness. Nguyễn is hoping he can walk w/ pt today in the hallway to get him up
and moving. CM shared a script for home PT can be sent to the facility as Myron, the director, did inform CM of if there are any rehab needs, a script will be required upon admission.
CM updated hospitalist and requested home PT script at d/c
Plan: [facility]
[2024-10-31 12:22] LABS: Glucose - Point of Care 121 mg/dl (70-99)
--- NOTE | 2024-10-31 14:10 | W.PN.HOSP.TC ---
Today's Communication/Plan
-
Doing well in terms of cognitive status per
Completed phenobarbital taper over the next 24 hours.
Pending placement to assisted living facility to be excepted on Friday 11/03.
Assessment / Plan
Assessment / Plan
Impression:
Acute mental status change.
Delirium tremens
Alcohol use disorder.
Suspected metabolic encephalopathy with concern for progressive neurodegenerative disorder
Other conditions:
Essential hypertension.
Diabetes type 2.
Hearing deficit.
Plan:
Acute mental status change suspected acute delirium secondary to alcohol withdrawal, Wernicke's encephalopathy.
Neurologic exam with no focal findings.
CT head with no acute abnormalities.
No clinical evidence of hepatic encephalopathy
Seems to be improving on phenobarbital
Continue alcohol withdrawal protocol. To be improving on phenobarbital taper
Continue IV thiamine.
Neurology consultation for additional workup with concern for protracted encephalopathy versus progressive neurodegenerative disorder
EEG is unremarkable
MRI with chronic white matter changes suggestive of chronic microvascular ischemic disease. Clinically with no evidence of vasculitis, infection, debilitating process.
Discussed with neurology.
Essential hypertension
Resume atenolol
Dyslipidemia on Lipitor.
Type 2 diabetes
Hemoglobin A1c 5.8.
Continue basal bolus protocol and carbohydrate controlled diet
Anticipated Discharge: > 48 hours
Subjective/Interval History
-
Date of Service: October 31, 2024
Objective Data
-
Vital Signs:
Vital Signs
Temp Pulse Resp BP Pulse Ox
98.2 F 63 16 125/60 96
10/31/24 11:05 10/31/24 11:05 10/31/24 11:05 10/31/24 11:05 10/31/24 11:05
I&O
10/30/24 10/31/24 11/01/24
06:59 06:59 06:59
Intake Total 180 / 180 1860 / 1860
Balance 180 / 180 1859
Physical Exam
-
General: Well Developed and No Apparent Distress
HEENT: Normocephalic, Atraumatic and Moist Mucous Membranes
Respiratory: Clear to Auscultation
Cardiac: Regular Rhythm and S1/S2; Negative Murmur, Rub or Gallop
GI: Soft, Nontender, Nondistended and Normal Bowel Sounds; Negative Organomegaly
Rectal: Deferred by Provider
Musculoskeletal: No Clubbing, No Cyanosis and No Edema
Skin: Negative Rash
Neuro: Awake, Alert, Oriented, AO x 3 and Nonfocal/Grossly Intact
[2024-10-31 15:38] VITALS: BP 130/60
[2024-10-31 17:01] LABS: Glucose - Point of Care 127 mg/dl (70-99)
[2024-10-31] MEDS: FLOMAX 0.8 MG PO (17:04)
[2024-10-31 21:28] LABS: Glucose - Point of Care 125 mg/dl (70-99)
[2024-10-31 23:55] VITALS: BP 133/69
[2024-11-01 07:14] LABS: Glucose - Point of Care 102 mg/dl (70-99)
[2024-11-01] MEDS: NOVOLOG FLEXPEN-LOW RESISTANCE SC ×2 (07:36→16:42)
[2024-11-01 07:45] VITALS: BP 139/71
[2024-11-01] MEDS: LUMINAL 32.4 MG PO ×2 (07:54→15:05)
[2024-11-01] MEDS: NEURONTIN 300 MG PO ×3 (07:54→21:03)
[2024-11-01] MEDS: LIPITOR 40 MG PO (07:54)
[2024-11-01] MEDS: PROTONIX 40 MG PO (07:54)
[2024-11-01] MEDS: VITAMIN B1 100 MG PO ×2 (07:54→21:03)
[2024-11-01] MEDS: FOLVITE 1 MG PO (07:54)
[2024-11-01] MEDS: TENORMIN 50 MG PO (08:04)
[2024-11-01] MEDS: PLENDIL EXTENDED RELEASE 5 MG PO (08:04)
[2024-11-01 11:58] LABS: Glucose - Point of Care 158 mg/dl (70-99)
[2024-11-01] MEDS: NOVOLOG FLEXPEN-LOW RESISTANCE 1 UNITS SC (12:08)
[2024-11-01] MEDS: BenGay-Like 1 APPLIC TOPICAL ×3 (12:09→21:03)
--- NOTE | 2024-11-01 14:48 | W.PN.HOSP.TC ---
Today's Communication/Plan
-
continue current care plan
nsaid cream for r shoulder pain
[facility] on sunday
Assessment / Plan
Assessment / Plan
Impression:
Acute mental status change.
Delirium tremens
Alcohol use disorder.
Suspected metabolic encephalopathy with concern for progressive neurodegenerative disorder
Right shoulder pain
Other conditions:
Essential hypertension.
Diabetes type 2.
Hearing deficit.
Plan:
Acute mental status change suspected acute delirium secondary to alcohol withdrawal, Wernicke's encephalopathy.
Neurologic exam with no focal findings.
CT head with no acute abnormalities.
No clinical evidence of hepatic encephalopathy
Seems to be improving on phenobarbital
Continue alcohol withdrawal protocol. To be improving on phenobarbital taper
Continue IV thiamine.
Neurology consultation for additional workup with concern for protracted encephalopathy versus progressive neurodegenerative disorder
EEG is unremarkable
MRI with chronic white matter changes suggestive of chronic microvascular ischemic disease. Clinically with no evidence of vasculitis, infection, debilitating process.
Discussed with neurology.
Essential hypertension
Resume atenolol
Dyslipidemia on Lipitor.
Type 2 diabetes
Hemoglobin A1c 5.8.
Continue basal bolus protocol and carbohydrate controlled diet
R shoulder pain - normal ROM,
pain localizing on ant side on muscles/tendon
nsaid cream ordered for patient to use
Anticipated Discharge: 24 - 48 hours
Subjective/Interval History
-
Date of Service: November 01, 2024
some right shoulder pain
no other reported issues
Objective Data
-
Vital Signs:
Vital Signs
Temp Pulse Resp BP Pulse Ox
97.4 F 80 16 139/71 96
11/01/24 07:45 11/01/24 07:45 11/01/24 07:45 11/01/24 07:45 11/01/24 07:45
I&O
0211/01/24 11/02/24
06:59 06:59 06:59
Intake Total 1859 240 / 240
Output Total 625 / 625
Balance 1859 -385 / -385
Review of Systems
-
Respiratory: Reports No Symptoms
Cardiac: Reports No Symptoms
Abdomen/GI: Reports No Symptoms
Physical Exam
-
General: No Apparent Distress and Comfortable
HEENT: Negative Oxygen
Respiratory: Clear to Auscultation
Cardiac: Regular Rhythm and S1/S2; Negative Murmur or Rub
GI: Soft, Nontender, Nondistended and Normal Bowel Sounds
Musculoskeletal: No Edema
Neuro: Awake, Alert, No Motor Deficits and Nonfocal/Grossly Intact
Psych: Calm
[2024-11-01 15:39] VITALS: BP 124/75
[2024-11-01 16:09] VITALS: BP 124/74; PULSE 71
[2024-11-01 16:30] LABS: Glucose - Point of Care 137 mg/dl (70-99)
[2024-11-01] MEDS: FLOMAX 0.8 MG PO (18:03)
[2024-11-01 21:51] LABS: Glucose - Point of Care 126 mg/dl (70-99)
[2024-11-01 23:55] VITALS: BP 146/70
[2024-11-02 07:25] LABS: Glucose - Point of Care 109 mg/dl (70-99)
[2024-11-02 07:45] VITALS: BP 143/80
[2024-11-02] MEDS: NOVOLOG FLEXPEN-LOW RESISTANCE SC ×3 (09:03→16:39)
[2024-11-02] MEDS: BenGay-Like 1 APPLIC TOPICAL ×4 (09:13→20:05)
[2024-11-02] MEDS: LIPITOR 40 MG PO (09:14)
[2024-11-02] MEDS: TENORMIN 50 MG PO (09:14)
[2024-11-02] MEDS: PROTONIX 40 MG PO (09:14)
[2024-11-02] MEDS: VITAMIN B1 100 MG PO ×2 (09:14→20:05)
[2024-11-02] MEDS: PLENDIL EXTENDED RELEASE 5 MG PO (09:14)
[2024-11-02] MEDS: FOLVITE 1 MG PO (09:14)
[2024-11-02] MEDS: NEURONTIN 300 MG PO ×3 (09:14→20:04)
--- NOTE | 2024-11-02 10:18 | W.PN.HOSP.TC ---
Today's Communication/Plan
-
continue current care plan
discharge tomorrow to [facility]
Assessment / Plan
Assessment / Plan
Impression:
Acute mental status change.
Delirium tremens
Alcohol use disorder.
Suspected metabolic encephalopathy with concern for progressive neurodegenerative disorder
Right shoulder pain
Other conditions:
Essential hypertension.
Diabetes type 2.
Hearing deficit.
Plan:
Acute mental status change suspected acute delirium secondary to alcohol withdrawal, Wernicke's encephalopathy.
Neurologic exam with no focal findings.
CT head with no acute abnormalities.
No clinical evidence of hepatic encephalopathy
Seems to be improving on phenobarbital
Continue alcohol withdrawal protocol. To be improving on phenobarbital taper
Continue IV thiamine.
Neurology consultation for additional workup with concern for protracted encephalopathy versus progressive neurodegenerative disorder
EEG is unremarkable
MRI with chronic white matter changes suggestive of chronic microvascular ischemic disease. Clinically with no evidence of vasculitis, infection, debilitating process.
Discussed with neurology.
Essential hypertension
Resume atenolol
Dyslipidemia on Lipitor.
Type 2 diabetes
Hemoglobin A1c 5.8.
Continue basal bolus protocol and carbohydrate controlled diet
R shoulder pain - normal ROM,
pain localizing on ant side on muscles/tendon
nsaid cream ordered for patient to use
Anticipated Discharge: Within 24 hours
Subjective/Interval History
-
Date of Service: November 02, 2024
no issues overnight
resting comfortably in bed
Objective Data
-
Vital Signs:
Vital Signs
Temp Pulse Resp BP Pulse Ox
97.9 F 81 16 143/80 97
11/02/24 07:45 11/02/24 07:45 11/02/24 07:45 11/02/24 07:45 11/02/24 07:45
I&O
11/01/24 11/02/24 11/03/24
06:59 06:59 06:59
Intake Total 240 / 240 240 / 240
Output Total 625 / 625 250 / 250
Balance -385 / -385 -10 / -10
Review of Systems
-
Respiratory: Reports No Symptoms
Cardiac: Reports No Symptoms
Abdomen/GI: Reports No Symptoms
Physical Exam
-
General: No Apparent Distress and Comfortable
HEENT: Negative Oxygen
Respiratory: Clear to Auscultation
Cardiac: Regular Rhythm and S1/S2; Negative Murmur or Rub
GI: Soft, Nontender, Nondistended and Normal Bowel Sounds
Musculoskeletal: No Edema
Neuro: Awake, Alert, No Motor Deficits and Nonfocal/Grossly Intact
Psych: Calm
[2024-11-02 11:32] LABS: Glucose - Point of Care 139 mg/dl (70-99)
[2024-11-02 15:25] VITALS: BP 110/66
[2024-11-02 16:37] LABS: Glucose - Point of Care 122 mg/dl (70-99)
[2024-11-02] MEDS: FLOMAX 0.8 MG PO (16:55)
[2024-11-02 21:12] LABS: Glucose - Point of Care 182 mg/dl (70-99)
[2024-11-02 23:20] VITALS: BP 131/69
[2024-11-03 07:17] VITALS: BP 144/78
[2024-11-03 07:52] LABS: Glucose - Point of Care 110 mg/dl (70-99)
[2024-11-03] MEDS: NOVOLOG FLEXPEN-LOW RESISTANCE SC ×2 (08:22→12:36)
[2024-11-03] MEDS: BenGay-Like 1 APPLIC TOPICAL (09:36)
[2024-11-03] MEDS: PROTONIX 40 MG PO (09:37)
[2024-11-03] MEDS: PLENDIL EXTENDED RELEASE 5 MG PO (09:37)
[2024-11-03] MEDS: NEURONTIN 300 MG PO (09:37)
[2024-11-03] MEDS: LIPITOR 40 MG PO (09:38)
[2024-11-03] MEDS: VITAMIN B1 100 MG PO (09:38)
[2024-11-03] MEDS: TENORMIN 50 MG PO (09:39)
[2024-11-03] MEDS: FOLVITE 1 MG PO (09:39)
--- NOTE | 2024-11-03 10:48 | CM ---
Spoke w/ pt's son, Nguyễn, who confirmed pt is set up at assisted living facility ([facility]) and can be d/c today. Nguyễn shared facility is able to admit pt up until 3 pm, Nguyễn shared he will transport pt and will be at
hospital between 1-2 pm. Nguyễn is requesting neurology report as well.
CM informed hospitalist of d/c today, agreeable to d/c. CM reminded of PT/OT script at d/c
Met w/ pt bedside to inform of d/c today, pt agreeable stating he was told the facility is new and happy to d/c.
IMM reviewed, pt given copy, copy placed in chart
Plan: [facility] Assisted [facility]. Son will transport
--- NOTE | 2024-11-03 11:19 | W.DS.TRANS ---
DC Summary - [employer]
-
Discharge Instructions:
Discharge Diagnosis/Procedures Impression:
Acute mental status change.
Delirium tremens
Alcohol use disorder.
Suspected metabolic encephalopathy with concern
for progressive neurodegenerative disorder
Right shoulder pain
Other conditions:
Essential hypertension.
Diabetes type 2.
Hearing deficit.
Diet Regular
Instructions:
Stand-Alone Forms:
Changes to Home Medications: No
Discharge Medications:
DC Medications w/original date entered in [facility]
atenolol 50 mg tablet 50 mg PO DAILY 01/08/13
felodipine 5 mg tablet,extended release 24 hr 5 mg PO DAILY 01/08/13
omeprazole 20 mg tablet,delayed release 20 mg PO DAILY 01/08/13
acetaminophen 500 mg tablet (Tylenol Extra Strength) 1,000 mg PO Q6HPRN PRN mild pain 10/26/24
atorvastatin 80 mg tablet 40 mg PO DAILY 10/26/24
gabapentin 300 mg capsule 300 mg PO TID 10/26/24
loratadine 10 mg tablet 10 mg PO DAILY 10/26/24
tamsulosin 0.4 mg capsule 0.8 mg PO QPM 10/26/24
therapeutic multivitamin 1 tab PO DAILY 10/26/24
thiamine HCl (vitamin B1) 100 mg tablet 100 mg PO DAILY 10/26/24
Home Medication Changes
Pending Results: No
[2024-11-03 11:56] VITALS: BP 137/72
[2024-11-03 12:30] LABS: Glucose - Point of Care 93 mg/dl (70-99)
== END 2024-11-03 13:54 | disposition home or self-care (01) | DRG 896 ==
LOC: 4 EAST ACU 15:27
PROVIDERS: Physician Assistant; ADMITTING PHYSICIAN Internal Medicine; ATTENDING PHYSICIAN Internal Medicine; CONSULT PHYSICIAN Psychiatry & Neurology Neurology; EMERGENCY PHYSICIAN Emergency Medicine; OTHER PHYSICIAN Psychiatry & Neurology Psychiatry
DX: F10.231 Alcohol dependence with withdrawal delirium (principal); G92.8 Other toxic encephalopathy; I16.1 Hypertensive emergency; E51.2 Wernicke's encephalopathy; I10 Essential (primary) hypertension; E11.9 Type 2 diabetes mellitus without complications; H91.90 Unspecified hearing loss, unspecified ear; Z90.49 Acquired absence of other specified parts of digestive tract; Z79.84 Long term (current) use of oral hypoglycemic drugs; Z79.82 Long term (current) use of aspirin; E78.00 Pure hypercholesterolemia, unspecified; Z86.73 Personal history of transient ischemic attack (TIA), and cerebral infarction without residual deficits; K21.9 Gastro-esophageal reflux disease without esophagitis; N40.0 Benign prostatic hyperplasia without lower urinary tract symptoms
CPT/HCPCS: 70030; 70450; 70551; 80053; 80306; 81003; 81015; 82077; 82140; 82607; 82746; 82962; 82977; 83036; 83735; 84100; 84443; 85025; 87086; 93005; 95816; 97116; 97162; 97166; 99285